=== PATIENT | female | born 1950 | race Hispanic/Latino ===

== ENCOUNTER 2017-12-18 14:04 | Inpatient (IN) | payer MEDICARE, OTHER ==
[2017-12-18] MEDS ORDERED: ASPIRIN PO ONE (14:46)
--- NOTE | 2017-12-18 15:33 | XRay Report ---
ROUTINE CHEST, TWO VIEWS: HISTORY: chest pain. The trachea, heart, mediastinal contour, lung piedra and bony thorax are unremarkable. IMPRESSION: Unremarkable chest x-ray.
[2017-12-18 16:01] LABS: Basophils % (Auto) 0.6 % (0.0-1.8); Eosinophils # (Auto) 0.3 K/mm3 (0.0-0.4); Eosinophils % (Auto) 4.8 % (0.0-4.3); Hematocrit 41.7 % (30.3-42.9); Hemoglobin 13.8 gm/dl (10.1-14.3); Lymphocytes # (Auto) 1.9 K/mm3 (1.2-5.4); Lymphocytes % (Auto) 31.4 % (13.4-35.0); Mean Corpuscular HGB Conc 33 % (30-34); Mean Corpuscular Hemoglobin 30 pg (28-32); Mean Corpuscular Volume 90 fl (79-97); Monocytes # (Auto) 0.6 K/mm3 (0.0-0.8); Platelet Count 334 K/mm3 (140-440); Red Blood Count 4.65 M/mm3 (3.65-5.03); Red Cell Distribution Width 15.9 % (13.2-15.2)
[2017-12-18 16:16] LABS: BUN/Creatinine Ratio 23; Blood Urea Nitrogen 18 mg/dL (7-17); Calcium 9.9 mg/dL (8.4-10.2); Hemolysis Index 9
--- NOTE | 2017-12-18 20:42 | Emergency Department Report ---
ED Chest Pain HPI - General Chief Complaint: Chest Pain Stated Complaint: CHEST PAIN Time Seen by Provider: 12/18/17 20:14 Source: EMS, old records reviewed (no previous medical record for review) Mode of arrival: Ambulatory Limitations: No Limitations - History of Present Illness Initial Comments: 67-year-old female with a past medical history of hypertension and depression presents to the hospital with complaints of chest for the last 2 days. Pain is described as left-sided tightness and pressure without aggravating or alleviating factors. Pain is rated 8/10 in intensity when it occurs. Persistent shortness of breath and occasional diaphoresis. Patient is unsure if symptoms are secondary to her anxiety. Denies nausea, vomiting, calf tenderness, history of PEs as DVT,, edema, recent travel history, or fever. Patient does not smoke. Positive history of CAD. Father had multiple heart attacks. Patient states the last stress test was approximately 2-3 years ago and was okay at that time.[facility]. - Related Data Allergies Allergy/AdvReac Type Severity Reaction Status Date / Time No Known Allergies Allergy Unverified 12/18/17 14:46 Heart Score - HEART Score History: Slightly suspicious EKG: Normal Age: > 65 Risk factors: 1-2 risk factors Troponin: < normal limit HEART Score: 3 ED Review of Systems ROS: Stated complaint: CHEST PAIN Other details as noted in HPI Comment: All other systems reviewed and negative ED Past Medical Hx - Past Medical History Hx Hypertension: Yes Hx Psychiatric Treatment: Yes (Depression, Multiple attemps of suicide attempts) - Surgical History Additional Surgical History: bilateral knee replacment,total hip Left, x2,tubiligation, Ulna Nerve, benign breast cyst - Social History Smoking Status: Never Smoker Substance Use Type: Alcohol ED Physical Exam - General Limitations: No Limitations - Other Other exam information: General: No limitations, patient is alert in no acute distress Head exam: Atraumatic, normocephalic Eyes exam: Normal appearance ENT: Moist mucous membrane, normal oropharynx Neck exam: Normal inspection, full range of motion, no meningismus nontender Respiratory exam: Clear to auscultation bilateral, no wheezes, rales, crackles Cardiovascular: Normal rate and rhythm, normal heart sounds, mild lower sternal tenderness Abdomen: Soft, nondistended, and nontender, with normal bowel sounds, no rebound, or guarding Extremity: Full range of motion normal inspection no deformity Back: Normal Inspection, full range of motion, no tenderness Neurologic: Alert, oriented x3, cranial nerves intact, no motor or sensory deficit Psychiatric: normal affect, normal mood Skin: Warm, dry, intact ED Course Vital Signs 12/18/17 14:41 Temperature 98.5 F Pulse Rate 92 H Respiratory 20 Rate Blood Pressure 153/84 O2 Sat by Pulse 98 Oximetry ONI score - Oni Score Age > 65: (1) Yes Aspirin use within the Past 7 Days: (0) No 3 or more CAD Risk Factors: (0) No 2 or more Angina events in past 24 hrs: (1) Yes Known CAD with more than 50% Stenosis: (0) No Elevated Cardiac Markers: (0) No ST Deviation Greater than 0.5mm: (0) No ONI Score: 2 ED Medical Decision Making - Lab Data Result diagrams: 12/18/17 15:19 12/18/17 15:19 Lab Results 12/18/17 12/18/17 12/18/17 Range/Units 15:19 15:19 17:37 WBC 6.2 (4.5-11.0) K/mm3 RBC 4.65 (3.65-5.03) M/mm3 Hgb 13.8 (10.1-14.3) gm/dl Hct 41.7 (30.3-42.9) % MCV 90 (79-97) fl MCH 30 (28-32) pg MCHC 33 (30-34) % RDW 15.9 H (13.2-15.2) % Plt Count 334 (140-440) K/mm3 Lymph % (Auto) 31.4 (13.4-35.0) % [place] % (Auto) 10.0 H (0.0-7.3) % Eos % (Auto) 4.8 H (0.0-4.3) % Baso % (Auto) 0.6 (0.0-1.8) % Lymph # 1.9 (1.2-5.4) K/mm3 [place] # 0.6 (0.0-0.8) K/mm3 Eos # 0.3 (0.0-0.4) K/mm3 Baso # 0.0 (0.0-0.1) K/mm3 Seg Neutrophils % 53.2 (40.0-70.0) % Seg Neutrophils # 3.3 (1.8-7.7) K/mm3 Sodium 137 (137-145) mmol/L Potassium 4.4 (3.6-5.0) mmol/L Chloride 97.2 L (98-107) mmol/L Carbon Dioxide 27 (22-30) mmol/L Anion Gap 17 mmol/L BUN 18 H (7-17) mg/dL Creatinine 0.8 (0.7-1.2) mg/dL Estimated GFR > 60 ml/min BUN/Creatinine Ratio 23 % Glucose 100 (65-100) mg/dL Calcium 9.9 (8.4-10.2) mg/dL Troponin T < 0.010 < 0.010 (0.00-0.029) ng/mL - EKG Data -: EKG Interpreted by Me (negro) EKG shows normal: sinus rhythm, axis (qrs -54), QRS complexes (qrsd 93), ST-T waves (no stemi/ T wave inversions) Rate: normal (87) - EKG Data When compared to previous EKG there are: previous EKG unavailable - Medical Decision Making Chest pain Several cardiac risk factors Differential includes anxiety Without daily and enzymes negative 2 Limited to the hospital for further workup and evaluation Aspirin ordered in the ED - Differential Diagnosis NV, unstable angina, atypical chest pain, anxiety, PE Critical Care Time: No Critical care attestation.: If time is entered above; I have spent that time in minutes in the direct care of this critically ill patient, excluding procedure time. ED Disposition Clinical Impression: Chest pain, HTN (hypertension), Anxiety Disposition: OP ADMIT IP TO THIS HOSP Is pt being admited?: Yes Condition: Stable Time of Disposition: 20:47 (Dr michael/hosp)
--- NOTE | 2017-12-19 06:23 | History and Physical Report ---
CHIEF COMPLAINT: Left-sided chest pain for the last couple of hours. HISTORY OF PRESENT ILLNESS: A 67-year-old female with history of schizophrenia, on Haldol and was at a psych facility, was sent from the psych facility for left-sided chest pain, localized. Nonradiating. No diaphoresis, no shortness of breath. No nausea, vomiting. No palpitations. This is the first episode. The patient never had a cath or stress test in the past. PAST MEDICAL HISTORY: Significant for schizophrenia, restless legs syndrome, and constipation. PAST SURGICAL HISTORY: Unavailable. ALLERGIES: ADHESIVE TAPE. PERSONAL HISTORY: Does not smoke. No alcohol, no recreational drugs. FAMILY HISTORY: Unavailable. REVIEW OF SYSTEMS: Significant for left-sided chest pain. Otherwise, review of systems is essentially negative. A 14-point review of systems done. PHYSICAL EXAMINATION: GENERAL: Elderly female, cooperative during examination. VITAL SIGNS: Blood pressure is 130/76, temperature is 98, pulse is 70, respirations are 16. HEENT: Unremarkable. NECK: Supple, no lymphadenopathy, no thyromegaly. LUNGS: Clear to auscultation and percussion. Good air entry. CARDIOVASCULAR SYSTEM: S1, S2 heard. No gallop, no murmur, no rub. Apical impulse in left fifth intercostal space and midclavicular line. ABDOMEN: Soft and benign. No hepatosplenomegaly. No guarding, no rigidity. Hernial orifices are normal. EXTREMITIES: Good pedal pulses. No pedal edema. LABORATORY DATA: Reviewed. Labs are not accessible at this point of time. DIAGNOSTIC DATA: EKG shows sinus rhythm, 87 heart rate. Left anterior fascicular block. No other acute ST-T wave changes. ASSESSMENT AND PLAN: 1. Chest pain, rule out myocardial infarction, chest pain protocol. Lexiscan ordered. Troponins ordered. 2. Schizophrenia. The patient already on long-acting Haldol. Continue Haldol 5 mg q. 4 hours. Also, mental health consult. The patient to be discharged if Lexiscan is negative. The patient is stable to be discharged back to psych facility. 3. Deep venous thrombosis prophylaxis, Lovenox 40 mg subcutaneous daily. JOB# [id number] VSM/NTS SUNSHINED
[2017-12-19] MEDS ORDERED: ZOFRAN IV PRN (08:29)
[2017-12-19] MEDS ORDERED: HALDOL PO PRN (08:29)
[2017-12-19] MEDS ORDERED: PERCOCET 5/325 PO PRN (08:29)
[2017-12-19] MEDS ORDERED: NON-FORMULARY (Acetaminophen [Tylenol] 325 MG) PO PRN (08:29)
[2017-12-19] MEDS ORDERED: TYLENOL PO PRN (08:29)
[2017-12-19] MEDS ORDERED: MOTRIN PO PRN (08:29)
[2017-12-19] MEDS ORDERED: SODIUM CHLORIDE FLUSH SYRINGE 10 ML IV PRN (08:29)
[2017-12-19] MEDS ORDERED: MORPHINE IV PRN (08:29)
--- NOTE | 2017-12-19 08:32 | Event Note ---
Date: 12/18/17 See dictated H/p in reports Chest pain r/o IN protocol HtN Schizophrenia
[2017-12-19] MEDS ORDERED: NACL 0.9% 1000 ML 1,000 ML IV SCH (09:00)
[2017-12-19] MEDS ORDERED: ALUM-MAG HYDROX-SIMETH 200-200-20MG/5ML PO PRN (10:00)
[2017-12-19] MEDS ORDERED: PNEUMOVAX 23 IM ONE (12:00)
[2017-12-19] MEDS ORDERED: LEXISCAN IV ONE (12:07)
[2017-12-19] MEDS: NORVASC PO SCH (12:52)
[2017-12-19] MEDS: PEPCID PO SCH ×2 (12:52→21:52)
[2017-12-19] MEDS: SODIUM CHLORIDE FLUSH SYRINGE 10 ML IV SCH ×2 (12:53→21:54)
[2017-12-19] MEDS: COLACE PO SCH ×2 (12:53→21:53)
[2017-12-19] MEDS: REMERON PO SCH (12:53)
--- NOTE | 2017-12-19 15:10 | Progress Note ---
Assessment and Plan Assessment and plan: --Chest pain; evaluate for acute coronary syndrome Serial cardiac enzymes, EKG, continue cardiac medications Stress test to rule out reversible ischemia Echocardiogram for LV function and ejection fraction --Possible GERD; continue Pepcid --Obesity; BMI 32.5; exercise as tolerated and weight reduction When medically stable --History of depression; patient was transferred from [facility] Possible discharge back to [place] when medically stable --DVT prophylaxis; Lovenox Closely monitor the patient and adjust the management as needed Plan of care reviewed with the patient and her nurse History Interval history: Patient seen and examined medical records reviewed Admitted with chest pain and shortness of breath Feeling slightly better Scheduled for stress test today Alert awake oriented 3 Vital signs reviewed Hospitalist Physical - Constitutional Vitals: Temp Pulse Resp BP Pulse Ox 98.4 F 111 H 18 151/84 97 12/19/17 05:00 12/19/17 11:32 12/19/17 10:00 12/19/17 12:52 12/19/17 05:00 General appearance: Present: no acute distress, well-nourished, obese - EENT Eyes: Present: PERRL, EOM intact - Neck Neck: Present: supple, normal ROM - Respiratory Respiratory effort: normal Respiratory: bilateral: diminished, negative: rales, rhonchi, wheezing - Cardiovascular Rhythm: regular Heart Sounds: Present: S1 & S2 - Extremities Extremities: no ischemia, No edema - Abdominal General gastrointestinal: soft, non-tender, non-distended, normal bowel sounds - Integumentary Integumentary: Present: clear, warm - Psychiatric Psychiatric: appropriate mood/affect, cooperative - Neurologic Neurologic: CNII-XII intact, moves all extremities Results - Labs CBC & Chem 7: 12/18/17 15:19 12/18/17 15:19 Labs: Laboratory Last Values WBC 6.2 K/mm3 (4.5-11.0) 12/18/17 15:19 RBC 4.65 M/mm3 (3.65-5.03) 12/18/17 15:19 Hgb 13.8 gm/dl (10.1-14.3) 12/18/17 15:19 Hct 41.7 % (30.3-42.9) 12/18/17 15:19 MCV 90 fl (79-97) 12/18/17 15:19 MCH 30 pg (28-32) 12/18/17 15:19 MCHC 33 % (30-34) 12/18/17 15:19 RDW 15.9 % (13.2-15.2) H 12/18/17 15:19 Plt Count 334 K/mm3 (140-440) 12/18/17 15:19 Lymph % (Auto) 31.4 % (13.4-35.0) 12/18/17 15:19 [place] % (Auto) 10.0 % (0.0-7.3) H 12/18/17 15:19 Eos % (Auto) 4.8 % (0.0-4.3) H 12/18/17 15:19 Baso % (Auto) 0.6 % (0.0-1.8) 12/18/17 15:19 Lymph # 1.9 K/mm3 (1.2-5.4) 12/18/17 15:19 [place] # 0.6 K/mm3 (0.0-0.8) 12/18/17 15:19 Eos # 0.3 K/mm3 (0.0-0.4) 12/18/17 15:19 Baso # 0.0 K/mm3 (0.0-0.1) 12/18/17 15:19 Seg Neutrophils % 53.2 % (40.0-70.0) 12/18/17 15:19 Seg Neutrophils # 3.3 K/mm3 (1.8-7.7) 12/18/17 15:19 Sodium 137 mmol/L (137-145) 12/18/17 15:19 Potassium 4.4 mmol/L (3.6-5.0) 12/18/17 15:19 Chloride 97.2 mmol/L (98-107) L 12/18/17 15:19 Carbon Dioxide 27 mmol/L (22-30) 12/18/17 15:19 Anion Gap 17 mmol/L 12/18/17 15:19 BUN 18 mg/dL (7-17) H 12/18/17 15:19 Creatinine 0.8 mg/dL (0.7-1.2) 12/18/17 15:19 Estimated GFR > 60 ml/min 12/18/17 15:19 BUN/Creatinine Ratio 23 % 12/18/17 15:19 Glucose 100 mg/dL (65-100) 12/18/17 15:19 Hemoglobin A1c 5.6 % (4-6) 12/19/17 09:16 Calcium 9.9 mg/dL (8.4-10.2) 12/18/17 15:19 Troponin T < 0.010 ng/mL (0.00-0.029) 12/18/17 20:54
--- NOTE | 2017-12-19 19:00 | Treadmill Report ---
LEXISCAN STRESS TEST REPORT REASON FOR STUDY: Chest pain. STRESS TEST PROTOCOL: The patient received 0.4 mg of Lexiscan intravenously over 10 seconds. Tc-99m Tetrofosmin was subsequently injected. Baseline EKG, normal sinus rhythm with left anterior fascicular block. Lexiscan EKG, no diagnostic ischemic changes. No chest pain. No arrhythmias. IMPRESSION: Electrocardiographically negative stress test. Nuclear imaging report to follow. JOB# [id number] AGO/NTS
[2017-12-19] MEDS ORDERED: BENADRYL PO PRN (22:00)
--- NOTE | 2017-12-20 01:03 | Treadmill Report ---
THALLIUM REPORT REASON FOR STUDY: Chest pain. IMAGING PROTOCOL: The patient received 10 mCi of Tc-99m Tetrofosmin for rest imaging, and 28 mCi of Tc-99m Tetrofosmin for stress imaging. Imaging for all procedures was completed 30-90 minutes following the initial injection of Technetium 99m Tetrofosmin. SPECT imaging in the 180 degree arc was performed in the right anterior oblique projection. Computerized reconstruction of the images was performed for analysis. NUCLEAR IMAGING RESULTS: Normal left ventricular cavity size with no change from stress to rest. Distribution of radionuclide within the left ventricle revealed normal myocardial photon uptake with stress and rest imaging. Gated SPECT imaging revealed hyperdynamic global left ventricular systolic function. The calculated left ventricular ejection fraction is 83%. IMPRESSION: Normal stress and rest myocardial perfusion imaging. Hyperdynamic global left ventricular systolic function. EF 83%. No evidence of significant stress-induced ischemia or prior infarction. [facility]# [id number] ZANE/NTS
[2017-12-20 05:43] LABS: Basophils % (Auto) 0.8 % (0.0-1.8); Eosinophils # (Auto) 0.3 K/mm3 (0.0-0.4); Eosinophils % (Auto) 5.6 % (0.0-4.3); Hematocrit 39.3 % (30.3-42.9); Lymphocytes # (Auto) 1.6 K/mm3 (1.2-5.4); Mean Corpuscular HGB Conc 33 % (30-34); Mean Corpuscular Hemoglobin 30 pg (28-32); Mean Corpuscular Volume 91 fl (79-97); Monocytes # (Auto) 0.6 K/mm3 (0.0-0.8); Monocytes % (Auto) 12.3 % (0.0-7.3); Platelet Count 275 K/mm3 (140-440); Red Blood Count 4.31 M/mm3 (3.65-5.03); Red Cell Distribution Width 15.9 % (13.2-15.2)
[2017-12-20 06:13] LABS: Alanine Aminotransferase 15 units/L (7-56); Albumin 3.6 g/dL (3.9-5); BUN/Creatinine Ratio 21; Blood Urea Nitrogen 15 mg/dL (7-17); Calcium 9.1 mg/dL (8.4-10.2); Hemolysis Index 4
--- NOTE | 2017-12-20 09:32 | Progress Note ---
Hospitalist Physical - Constitutional Vitals: Temp Pulse Resp BP Pulse Ox 98.0 F 75 20 129/70 97 12/20/17 08:26 12/20/17 08:26 12/20/17 08:26 12/20/17 08:26 12/20/17 08:26 General appearance: Present: no acute distress, well-nourished, obese Results - Labs CBC & Chem 7: 12/20/17 05:06 12/20/17 05:06 Labs: Laboratory Last Values WBC 4.8 K/mm3 (4.5-11.0) 12/20/17 05:06 RBC 4.31 M/mm3 (3.65-5.03) 12/20/17 05:06 Hgb 13.0 gm/dl (10.1-14.3) 12/20/17 05:06 Hct 39.3 % (30.3-42.9) 12/20/17 05:06 MCV 91 fl (79-97) 12/20/17 05:06 MCH 30 pg (28-32) 12/20/17 05:06 MCHC 33 % (30-34) 12/20/17 05:06 RDW 15.9 % (13.2-15.2) H 12/20/17 05:06 Plt Count 275 K/mm3 (140-440) 12/20/17 05:06 Lymph % (Auto) 33.0 % (13.4-35.0) 12/20/17 05:06 [place] % (Auto) 12.3 % (0.0-7.3) H 12/20/17 05:06 Eos % (Auto) 5.6 % (0.0-4.3) H 12/20/17 05:06 Baso % (Auto) 0.8 % (0.0-1.8) 12/20/17 05:06 Lymph # 1.6 K/mm3 (1.2-5.4) 12/20/17 05:06 [place] # 0.6 K/mm3 (0.0-0.8) 12/20/17 05:06 Eos # 0.3 K/mm3 (0.0-0.4) 12/20/17 05:06 Baso # 0.0 K/mm3 (0.0-0.1) 12/20/17 05:06 Seg Neutrophils % 48.3 % (40.0-70.0) 12/20/17 05:06 Seg Neutrophils # 2.3 K/mm3 (1.8-7.7) 12/20/17 05:06 Sodium 139 mmol/L (137-145) 12/20/17 05:06 Potassium 4.7 mmol/L (3.6-5.0) 12/20/17 05:06 Chloride 103.1 mmol/L (98-107) 12/20/17 05:06 Carbon Dioxide 27 mmol/L (22-30) 12/20/17 05:06 Anion Gap 14 mmol/L 12/20/17 05:06 BUN 15 mg/dL (7-17) 12/20/17 05:06 Creatinine 0.7 mg/dL (0.7-1.2) 12/20/17 05:06 Estimated GFR > 60 ml/min 12/20/17 05:06 BUN/Creatinine Ratio 21 % 12/20/17 05:06 Glucose 93 mg/dL (65-100) 12/20/17 05:06 Hemoglobin A1c 5.6 % (4-6) 12/19/17 09:16 Calcium 9.1 mg/dL (8.4-10.2) 12/20/17 05:06 Total Bilirubin 0.40 mg/dL (0.1-1.2) 12/20/17 05:06 AST 16 units/L (5-40) 12/20/17 05:06 ALT 15 units/L (7-56) 12/20/17 05:06 Alkaline Phosphatase 58 units/L (35-129) 12/20/17 05:06 Troponin T < 0.010 ng/mL (0.00-0.029) 12/18/17 20:54 Total Protein 5.9 g/dL (6.3-8.2) L 12/20/17 05:06 Albumin 3.6 g/dL (3.9-5) L 12/20/17 05:06 Albumin/Globulin Ratio 1.6 % 12/20/17 05:06
[2017-12-20] MEDS: PEPCID PO SCH (10:22)
[2017-12-20] MEDS: REMERON PO SCH (10:22)
[2017-12-20] MEDS: COLACE PO SCH ×2 (10:22→10:24)
[2017-12-20] MEDS: NORVASC PO SCH (10:22)
[2017-12-20] MEDS: SODIUM CHLORIDE FLUSH SYRINGE 10 ML IV SCH (10:23)
[2017-12-20 12:05] VITALS: BP 141/72
--- NOTE | 2017-12-20 12:42 | Discharge Summary ---
Providers - Providers Date of Admission: 12/18/17 20:48 Date of discharge: 12/20/17 Attending physician: HAMMAD GOLDEN Hospitalization Reason for admission: chest pain Condition: Stable Pertinent studies: Stress test; negative for reversible ischemia, ejection fraction 80% Chest x-ray; normal study Hospital course: 67-year-old female patient with history of schizophrenia on Haldol was sent from psych facility with history of left-sided chest pain Patient was initially evaluated admitted to the hospital symptomatically managed Subsequently underwent stress test which was negative for reversible ischemia and preserved left ventricle function Patient's chest pain probably secondary to gastroesophageal reflux disease Appropriately managed, symptoms significantly improved Today she is comfortable no new complaints vital signs stable Physical examination, Prior to discharge is unremarkable Hemodynamically and clinically stable for discharge and transferred back to inpatient psych facility today Discharge diagnosis; --Atypical Chest pain; negative stress test --Possible GERD; continue Pepcid --Obesity; BMI 32.5; advised weight reduction --History of depression; management per psych --History of schizophrenia, management per psych Medically stable for discharge and transfer to [facility] today Disposition: DC/TX-65 PSY HOSP/PSY UNIT Time spent for discharge: 32 min Core Measure Documentation - Palliative Care Palliative Care/ Comfort Measures: Not Applicable - Core Measures Any of the following diagnoses?: none Exam - Constitutional Vitals: Temp Pulse Resp BP Pulse Ox 98.0 F 82 18 141/72 95 12/20/17 10:59 12/20/17 10:59 12/20/17 10:59 12/20/17 10:59 12/20/17 10:59 General appearance: Present: no acute distress, well-nourished, obese - EENT Eyes: Present: PERRL, EOM intact - Neck Neck: Present: supple, normal ROM - Respiratory Respiratory effort: normal Respiratory: negative: rales, rhonchi, wheezing - Cardiovascular Rhythm: regular Heart Sounds: Present: S1 & S2 - Extremities Extremities: no ischemia, No edema - Abdominal General gastrointestinal: Present: soft, non-tender, non-distended, normal bowel sounds - Integumentary Integumentary: Present: clear, warm - Musculoskeletal Musculoskeletal: strength equal bilaterally - Psychiatric Psychiatric: appropriate mood/affect, cooperative - Neurologic Neurologic: CNII-XII intact, moves all extremities Plan Activity: advance as tolerated, fall precautions Diet: low salt Additional Instructions: Transfer to inpatient psych facility [place] today. Patient will follow up with primary care physician for her medical needs upon discharge
== END 2017-12-20 15:06 | DRG 392 ==
LOC: ED 14:04 → 4A 20:48 → IMCU 12-19 00:30 → 4A 12-19 17:34
PROVIDERS: ADMIT Internal Medicine; ATTEND Internal Medicine
PROC: 3E0234Z Introduction of Serum, Toxoid and Vaccine into Muscle, Percutaneous Approach (ICD-10-PCS; principal; 2017-12-19)
DX: K21.9 Gastro-esophageal reflux disease without esophagitis (principal); F41.9 Anxiety disorder, unspecified; I10 Essential (primary) hypertension; F20.9 Schizophrenia, unspecified; E66.9 Obesity, unspecified; F32.9 Major depressive disorder, single episode, unspecified; Z96.653 Presence of artificial knee joint, bilateral; Z96.642 Presence of left artificial hip joint; Z91.5 Personal history of self-harm; Z23 Encounter for immunization; Z91.048 Other nonmedicinal substance allergy status; Z98.51 Tubal ligation status; Z68.32 Body mass index [BMI] 32.0-32.9, adult
CPT/HCPCS: 36415; 71046; 78452; 80048; 80053; 83036; 84484; 85025; 90732; 93005; 93010; 93017; A9502; J2785